=== PATIENT | male | born 1940 | race Hispanic/Latino ===

== ENCOUNTER 2017-09-22 08:26 | Inpatient (IN) | payer OTHER ==
[~2017-09-22] VITALS: Ht 172.7 cm; Wt 70.0 kg
[2017-09-22] VITALS (17 sets, daily range): BP systolic 109–164; BP diastolic 56–90
[2017-09-22 09:20] LABS: HEMATOCRIT 41.7 % (39.0-50.0); IMMATURE GRANULOCYTES 0.2 % (0.0-5.0); MEAN CELL VOLUME 91.2 fL CALC (80.0-100.0); MEAN CORPUSCULAR HGB 30.6 pG CALC (26.0-32.0); MEAN CORPUSCULAR HGB CONC 33.6 g/L CALC (32.0-36.0); NEUT# 2.83 thou/uL (1.82-7.42); RED BLOOD COUNT 4.57 mill/uL (4.70-6.10); RED CELL DISTRI WIDTH 13.5 % (11.5-15.5)
[2017-09-22 09:34] LABS: ALBUMIN 3.9 g/dL (3.2-5.0); ALKALINE PHOSPHATASE 85 u/l (38-126); ANION GAP 12 (6-22 (CALC)); BILIRUBIN, TOTAL 1.3 mg/dL (0.0-1.4); BUN 14 mg/dL (8-23); BUN/CREATININE RATIO 16 (12-20 (CALC)); CARBON DIOXIDE 27 mmol/l (22-30); CHLORIDE 105 mmol/l (95-108); CREATININE 0.9 mg/dL (0.7-1.3); GFR > 60 ML/MIN (>=60 (CALC)); GFR FOR AFR.AMER. > 60 ML/MIN (>=60 (CALC)); POTASSIUM 4.5 mmol/l (3.5-5.1); SGOT/AST 33 u/l (19-48); SGPT/ALT 27 u/l (11-66); SODIUM 140 mmol/l (137-146); TOTAL PROTEIN 6.8 g/dL (6.3-8.2)
[2017-09-22 09:36] LABS: PROTHROMBIN TIME 11.1 SECONDS (9.0-12.5)
[2017-09-23] VITALS (19 sets, daily range): BP systolic 98–136; BP diastolic 52–99
[2017-09-23 05:47] LABS: CHOLESTEROL HDL RATIO 2.6 (<4.4 (CALC)); MAGNESIUM 1.8 mg/dL (1.6-2.3)
[2017-09-24] VITALS (8 sets, daily range): BP systolic 97–136; BP diastolic 56–82
[2017-09-24] MEDS ORDERED: ASPIRIN EC325 MG PO (11:21)
[2017-09-24] MEDS ORDERED: ATENOLOL100 MG PO (11:21)
== END 2017-09-24 15:44 | disposition home or self-care (01) | DRG 310 ==
LOC: ED 08:26 → ED-I 11:14 → ED 12:25 → ICU 12:26
PROVIDERS: Emergency Medicine; ADMIT Internal Medicine; ATTEND Internal Medicine
DX: I48.91 Unspecified atrial fibrillation (principal); I10 Essential (primary) hypertension; I27.20 Pulmonary hypertension, unspecified; H11.32 Conjunctival hemorrhage, left eye; Z91.14 Patient's other noncompliance with medication regimen; Z87.891 Personal history of nicotine dependence
CPT/HCPCS: J1650

== ENCOUNTER 2017-11-20 18:41 | Emergency (ER) | payer SELFPAY ==
[~2017-11-20] VITALS: Ht 172.7 cm; Wt 68.2 kg
[~2017-11-20 18:41] MED LIST: ASPIRIN EC325 MG PO; ATENOLOL100 MG PO
[2017-11-20 19:38] LABS: HEMATOCRIT 43.8 % (39.0-50.0); HEMOGLOBIN 14.6 g/dl (14.0-18.0); IMMATURE GRANULOCYTES 0.3 % (0.0-5.0); MEAN CELL VOLUME 90.7 fL CALC (80.0-100.0); MEAN CORPUSCULAR HGB 30.2 pG CALC (26.0-32.0); MEAN CORPUSCULAR HGB CONC 33.3 g/L CALC (32.0-36.0); NEUT# 8.92 thou/uL (1.82-7.42); RED BLOOD COUNT 4.83 mill/uL (4.70-6.10); RED CELL DISTRI WIDTH 13.1 % (11.5-15.5)
[2017-11-20 19:39] LABS: URINE BILIRUBIN - DIPSTICK NEGATIVE (NEGATIVE); URINE BLOOD DIPSTICK SMALL (NEGATIVE); URINE COLOR YELLOW; URINE GLUCOSE - DIPSTICK NEGATIVE (NEGATIVE); URINE KETONE NEGATIVE (NEGATIVE); URINE LEUK ESTERASE NEGATIVE (NEGATIVE); URINE NITRITE - DIPSTICK NEGATIVE (Negative); URINE PH 5.5 (4.5-8.0); URINE PROTEIN - DIPSTICK NEGATIVE (NEG-TRACE); URINE SPECIFIC GRAVITY 1.025
[2017-11-20 19:57] LABS: ALBUMIN 4.3 g/dL (3.2-5.0); ALKALINE PHOSPHATASE 109 u/l (38-126); ANION GAP 13 (6-22 (CALC)); BILIRUBIN, TOTAL 0.8 mg/dL (0.0-1.4); BUN 19 mg/dL (8-23); BUN/CREATININE RATIO 15 (12-20 (CALC)); CARBON DIOXIDE 25 mmol/l (22-30); CHLORIDE 109 mmol/l (95-108); CREATININE 1.3 mg/dL (0.7-1.3); GFR 53 ML/MIN (>=60 (CALC)); GFR FOR AFR.AMER. > 60 ML/MIN (>=60 (CALC)); LIPASE 106 u/l (23-300); POTASSIUM 4.7 mmol/l (3.5-5.1); SGOT/AST 50 u/l (19-48); SODIUM 142 mmol/l (137-146); TOTAL PROTEIN 7.3 g/dL (6.3-8.2)
[2017-11-20 20:05] LABS: URINE CLARITY CLEAR
[2017-11-20 20:21] LABS: URINE SQUAMOUS EPITHELIAL CELL FEW EPI/hpf (0-FEW)
[2017-11-20] MEDS ORDERED: LORTAB 5/3255 MG PO (21:02)
[2017-11-20 21:08] VITALS: BP 148/92
== END 2017-11-20 21:34 | disposition home or self-care (01) | DRG 694 ==
LOC: ED 18:41
PROVIDERS: Family Medicine
DX: N20.0 Calculus of kidney (principal); R10.32 Left lower quadrant pain; R11.0 Nausea